=== PATIENT | male | born 1995 | race Caucasian/White ===

== ENCOUNTER 2022-01-23 10:16 | Inpatient (IN) | payer BC ==
[2022-01-23] MEDS ORDERED: Sodium Chloride 0.9% 10 ML Syringe FLUSH PRN (10:35)
[2022-01-23] MEDS ORDERED: Sodium Chloride 0.9% 2.5 ML Syringe FLUSH PRN (10:35)
[2022-01-23] MEDS ORDERED: Albuterol/Ipratropium 3.0-0.5 MG/3 ML Neb Soln NEB ONE (10:37)
[2022-01-23] MEDS ORDERED: methylPREDNISolone Sodium Succinate 125 MG/2 ML SDV IVPUSH ONE (10:37)
[2022-01-23] MEDS ORDERED: Nitroglycerin 0.4 MG Tab.SL SL ONE ×2 (11:27→13:49)
[2022-01-23 11:38] LABS: CARBON DIOXIDE,CO2 29.5 mmol/L (21.0-32.0); POTASSIUM,K 4.6 mmol/L (3.5-5.1)
[2022-01-23] MEDS ORDERED: Iopamidol 755 MG/ML 500 ML Multipack Bottle IVPUSH STA (12:47)
[2022-01-23] MEDS ORDERED: Enoxaparin 30 MG/0.3 ML Syringe SUBCUT ONE (15:21)
[2022-01-23] MEDS ORDERED: Enoxaparin 150 MG/1 ML Syringe SUBCUT ONE (15:21)
[2022-01-23] MEDS ORDERED: Enoxaparin 40 MG/0.4 ML Syringe SUBCUT ONE (15:45)
[2022-01-23] MEDS ORDERED: 50% Dextrose in Water 50 ML Syringe IVPUSH PRN (15:58)
[2022-01-23] MEDS ORDERED: Glucagon,Human Recombinant 1 MG Vial IM PRN (15:58)
[2022-01-23] MEDS ORDERED: Furosemide 40 MG/4 ML VIAL IVPUSH ONE (16:56)
[2022-01-23] MEDS ORDERED: Heparin Sodium 5,000 Units/ML Vial SUBCUT SCH (17:00)
[2022-01-23] MEDS: Pantoprazole 40 MG in Sodium Chloride 0.9% 10 ML IVPUSH SCH (17:31)
[2022-01-23] MEDS ORDERED: Acetaminophen 500 MG Tab PO ONE (17:38)
[2022-01-23 17:49] LABS: HEMOGLOBIN A1C 7.6 %
[2022-01-23] MEDS: Ondansetron 4 MG/2 ML SDV IVPUSH PRN (20:35)
[2022-01-23] MEDS ORDERED: Rifampin 300 MG Cap PO SCH (21:00)
[2022-01-23] MEDS: Insulin Aspart 100 Units/ML 3 ML Pen SUBCUT SCH (21:17)
[2022-01-24] MEDS: Heparin Sodium 5,000 Units/ML Vial SUBCUT SCH ×3 (04:15→20:22)
[2022-01-24 06:08] LABS: CARBON DIOXIDE,CO2 34.7 mmol/L (21.0-32.0); POTASSIUM,K 4.9 mmol/L (3.5-5.1)
[2022-01-24] MEDS: Insulin Aspart 100 Units/ML 3 ML Pen SUBCUT SCH ×3 (07:47→16:48)
[2022-01-24] MEDS ORDERED: Rifampin 300 MG Cap PO SCH (09:00)
[2022-01-24] MEDS ORDERED: Acetaminophen 500 MG Tab PO ONE (09:09)
[2022-01-24] MEDS: Rifampin 300 MG Cap PO SCH (10:50)
[2022-01-24] MEDS: Ondansetron 4 MG/2 ML SDV IVPUSH PRN (11:28)
[2022-01-24] MEDS: METHYLPHENIDATE HCL PO SCH (11:54)
[2022-01-24] MEDS ORDERED: Furosemide 40 MG/4 ML VIAL IVPUSH ONE (11:55)
[2022-01-24] MEDS ORDERED: Naproxen 500 MG Tab PO ONE (12:04)
[2022-01-24] MEDS: Pantoprazole 40 MG in Sodium Chloride 0.9% 10 ML IVPUSH SCH (16:40)
[2022-01-24] MEDS ORDERED: Ondansetron 4 MG/2 ML SDV IVPUSH PRN (18:51)
[2022-01-24] MEDS: Acetaminophen 500 MG Tab PO PRN (22:47)
[2022-01-25] MEDS: Heparin Sodium 5,000 Units/ML Vial SUBCUT SCH (03:35)
[2022-01-25 06:12] LABS: CARBON DIOXIDE,CO2 36.1 mmol/L (21.0-32.0); POTASSIUM,K 4.3 mmol/L (3.5-5.1)
[2022-01-25] MEDS: Insulin Aspart 100 Units/ML 3 ML Pen SUBCUT SCH ×2 (08:00→10:49)
[2022-01-25] MEDS: Acetaminophen 500 MG Tab PO PRN (09:00)
[2022-01-25] MEDS: Rifampin 300 MG Cap PO SCH (09:37)
[2022-01-25] MEDS: METHYLPHENIDATE HCL PO SCH (10:06)
[2022-01-25] MEDS ORDERED: acetaZOLAMIDE 250 MG Tab PO SCH (10:45)
[2022-01-25] MEDS ORDERED: Propofol 200 MG/20 ML SDV ONE (12:04)
[2022-01-25] MEDS ORDERED: Succinylcholine/Sod PF 100 MG/5 ML SYRINGE IV ONE (12:05)
[2022-01-25] MEDS ORDERED: Etomidate 2 MG/ML 20 ML SDV IVPUSH ONE (12:05)
[2022-01-25] MEDS ORDERED: propofoL 100 ML IV SCH (12:15)
[2022-01-25] MEDS ORDERED: Furosemide 40 MG/4 ML VIAL IVPUSH ONE (14:03)
== END 2022-01-25 14:15 | DRG 133 ==
LOC: MW.ED 10:16 → MW.MS 14:59 → MW.ICU 17:56
PROVIDERS: ADMIT Student in an Organized Health Care Education/Training Program; ATTEND Student in an Organized Health Care Education/Training Program
PROC: 5A09457 Assistance with Respiratory Ventilation, 24-96 Consecutive Hours, Continuous Positive Airway Pressure (ICD-10-PCS; 2022-01-24)
PROC: 0BH17EZ Insertion of Endotracheal Airway into Trachea, Via Natural or Artificial Opening (ICD-10-PCS; principal; 2022-01-25)
PROC: 5A1935Z Respiratory Ventilation, Less than 24 Consecutive Hours (ICD-10-PCS; 2022-01-25)
DX: J96.21 Acute and chronic respiratory failure with hypoxia (principal); J96.22 Acute and chronic respiratory failure with hypercapnia; G47.33 Obstructive sleep apnea (adult) (pediatric); E66.01 Morbid (severe) obesity due to excess calories; E11.9 Type 2 diabetes mellitus without complications; F90.9 Attention-deficit hyperactivity disorder, unspecified type; L73.2 Hidradenitis suppurativa; Z20.822 Contact with and (suspected) exposure to COVID-19; Z86.19 Personal history of other infectious and parasitic diseases; Z22.7 Latent tuberculosis; Z86.16 Personal history of COVID-19; Z79.4 Long term (current) use of insulin; Z79.899 Other long term (current) drug therapy; Z68.44 Body mass index [BMI] 60.0-69.9, adult
CPT/HCPCS: 36415; 36600; 51702; 71045; 71045-26; 71275; 71275-26; 80053; 82803; 82947; 83036; 83735; 83880; 84100; 84443; 84484; 85025; 85379; 85610; 85730; 93005; 93306; 93970; 93970-26; 94002; 94660; A9270-GY; C9113; J0330; J1644; J1650; J1940; J2405; J2704; J2930; J3010; J3490; J7050; J7620-GY; Q9967; U0002